=== PATIENT | male | born 1995 | race Caucasian/White ===

== ENCOUNTER 2018-11-10 14:00 | Emergency (ER) | payer OTHER ==
[~2018-11-10] VITALS: Ht 180.3 cm; Wt 83.9 kg
[~2018-11-10 14:00] MED LIST: HYDROCODONE-AP1 EAC6 PO; IBUPROFEN 800800 M1 PO; NOHOMEMEDICATIONS; NORCO 5-325 TA1 EACH PO; PENICILLIN V P500 MG PO; ZOFRAN ODT4 MG SUBLING
[2018-11-10] MEDS ORDERED: ZOFRAN4 MG PO (15:05)
[2018-11-10 15:11] VITALS: BP 154/95
== END 2018-11-10 15:12 | disposition home or self-care (01) ==
LOC: M.ERS 14:00
DX: S06.0X0A Concussion without loss of consciousness, initial encounter (principal); F17.210 Nicotine dependence, cigarettes, uncomplicated; J45.909 Unspecified asthma, uncomplicated; K21.9 Gastro-esophageal reflux disease without esophagitis; W22.8XXA Striking against or struck by other objects, initial encounter; Y92.89 Other specified places as the place of occurrence of the external cause; Y99.0 Civilian activity done for income or pay; Y99.8 Other external cause status

== ENCOUNTER 2019-09-29 18:39 | Emergency (ER) | payer OTHER ==
[~2019-09-29] VITALS: Ht 177.8 cm; Wt 86.2 kg
[~2019-09-29 18:39] MED LIST changes: +ZOFRAN4 MG PO
[2019-09-29] MEDS ORDERED: NAPROSYN500 MG PO (19:43)
[2019-09-29 20:21] VITALS: BP 141/86
== END 2019-09-29 20:25 | disposition home or self-care (01) ==
LOC: M.ERS 18:39
DX: S93.491A Sprain of other ligament of right ankle, initial encounter (principal); S93.691A Other sprain of right foot, initial encounter; J45.909 Unspecified asthma, uncomplicated; K21.9 Gastro-esophageal reflux disease without esophagitis; F17.210 Nicotine dependence, cigarettes, uncomplicated; V86.59XA Driver of other special all-terrain or other off-road motor vehicle injured in nontraffic accident, initial encounter; Y93.55 Activity, bike riding; Y92.413 State road as the place of occurrence of the external cause; Y99.9 Unspecified external cause status